=== PATIENT | male | born 2000 | race African-American/Black ===

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

== ENCOUNTER 2022-09-15 16:43 | Emergency (ER) | payer MEDICARE, OTHER ==
[~2022-09-15] VITALS: Ht 172.7 cm; Wt 89.0 kg
[2022-09-15 17:03] VITALS: BP 150/93
[2022-09-15] MEDS ORDERED: SULF1TAB48 PO (18:11)
[2022-09-15] MEDS ORDERED: CEPH500C2 PO (18:11)
== END 2022-09-15 18:46 | disposition home or self-care (01) ==
LOC: ER 16:43
DX: L03.115 Cellulitis of right lower limb (principal); F20.9 Schizophrenia, unspecified; F31.9 Bipolar disorder, unspecified
CPT/HCPCS: 99281

== ENCOUNTER 2022-12-10 20:36 | Emergency (ER) | payer MEDICARE, OTHER ==
[~2022-12-10] VITALS: Ht 175.3 cm; Wt 84.0 kg
[~2022-12-10 20:36] MED LIST: CEPH500C2 PO; SULF1TAB48 PO
[2022-12-10 20:48] VITALS: BP 138/75
== END 2022-12-10 23:20 | disposition left against medical advice (07) ==
LOC: ER 20:36
DX: Z53.21 Procedure and treatment not carried out due to patient leaving prior to being seen by health care provider (principal)
CPT/HCPCS: 82962; 99281